=== PATIENT | female | born 1980 | race Caucasian/White ===

== ENCOUNTER 2017-12-22 15:01 | Emergency (ER) | payer MEDICAID ==
[~2017-12-22] VITALS: Ht 157.5 cm; Wt 81.7 kg
[~2017-12-22 15:01] MED LIST: ACETAMINOPHEN-1 EAC1 PO; AMITRIPTYLINE H10 M1 PO; AMOXICILLIN 50500 M1 PO; ANAPROX; ANAPROX DS550 MG; CARAFATE 1 GM TA1 GM PO; CIPRO250 M1 PO; CLEOCIN HCL300 MG PO; CLONAZEPAM 1 MG1 M1 PO; COLACE100 MG PO; CYMBALTA; CYMBALTA30 MG PO; CYMBALTA60 MG PO; DESYREL; DESYREL100 MG PO; DESYREL50 MG; DICLOFENAC SODI75 MG PO; DIPHENHIST50 MG PO; DOXYCYCLINE 10100 MG PO; FLAGYL500 M1 PO; FLAGYL500 MG PO; FLEXERIL PO; HYDROCODONE-AP1 EAC6 PO; HYDROCODONE-APA1 TA1 PO; IBUPROFEN 800800 M1 PO; IBUPROFEN 800800 MG PO; LEVAQUIN 500 M500 M2 PO; MACROBID 100 M100 M1 PO; MACROBID 100 M100 M2 PO; MEDROLDOSEPACK PO; MULTIVITAMIN PO; NAPROSYN500 MG PO; NAUSEA MEDICATION; NEURONTIN600 MG PO; NORCO 10-325 T1 EACH PO; NORCO 5-325 TA1 EACH PO; ONDANSETRON HCL4 M3 PO; ORTHO-NOVUM1 EAC2 PO; OXYCODONE HCL15 MG PO; PEPCID20 MG PO; PERCOCET 10-321 EACH PO; PERCOCET 7.5-31 EACH PO; PHENERGAN 25 MG25 M1 PO; PREDNISONE 20 M20 MG PO; PRENATAL; PREVACID 24HR15 MG PO; PRILOSEC20 MG PO; PROTONIX 20 MG20 M1 PO; PYRIDIUM100 M1 PO; PYRIDIUM200 MG PO; RESTORIL15 MG PO; RISPERDAL; ROBAXIN 750 MG750 M1 PO; SLEEP AID; TOPAMAX PO; TOPAMAX25 M1 PO; TOPAMAX50 MG PO; TORADOL 10 MG T10 MG PO; TRAMADOL 50 MG50 MG PO; VICODIN; VICODIN PO; VICOPROFEN 2001 EACH PO; ZANAFLEX4 M1 PO; ZANAFLEX4 MG PO; ZANTAC; ZOFRAN ODT4 MG PO
[2017-12-22] MEDS ORDERED: LAMICTAL100 MG PO (15:21)
[2017-12-22] MEDS ORDERED: SERTRALINE HCL50 MG PO (15:22)
[2017-12-22 15:44] LABS: URINE BILIRUBIN NEGATIVE (Negative); URINE BLOOD NEGATIVE (Negative); URINE CLARITY CLOUDY; URINE COLOR YELLOW; URINE GLUCOSE-RANDOM NEGATIVE (Negative); URINE KETONES NEGATIVE (Negative); URINE LEUKOCYTES-REFLEX NEGATIVE (Negative); URINE NITRITE-REFLEX NEGATIVE (Negative); URINE PROTEIN NEGATIVE (Negative); URINE UROBILINOGEN 0.2 E.U./dl (0.2-1.0)
[2017-12-22 15:49] LABS: AMORPHOUS PHOSPHATES Many /LPF (None Seen); BACTERIA-REFLEX 1-9 Few /HPF (None Seen); CASTS None Seen /LPF (None Seen); SQUAMOUS 4-10 Moderate /LPF (0-3); URINE RBC 0-2 Rare /HPF (0-2); URINE WBC-REFLEX None Seen /HPF (0-5)
[2017-12-22] MEDS ORDERED: MEDROLDOSEPACK PO (15:57)
[2017-12-22 16:05] VITALS: BP 124/74
== END 2017-12-22 16:05 | disposition home or self-care (01) ==
LOC: M.ERS 15:01
PROVIDERS: Personal Emergency Response Attendant
DX: M54.42 Lumbago with sciatica, left side (principal); M79.7 Fibromyalgia; F32.9 Major depressive disorder, single episode, unspecified; F41.9 Anxiety disorder, unspecified; G43.909 Migraine, unspecified, not intractable, without status migrainosus; F17.210 Nicotine dependence, cigarettes, uncomplicated; Z88.1 Allergy status to other antibiotic agents; Z88.8 Allergy status to other drugs, medicaments and biological substances

== ENCOUNTER 2018-06-18 14:37 | Inpatient (IN) | payer MEDICAID ==
[~2018-06-18] VITALS: Ht 167.6 cm; Wt 83.9 kg
[~2018-06-18 14:37] MED LIST changes: +LAMICTAL100 MG PO; +SERTRALINE HCL50 MG PO
[2018-06-18 14:48] VITALS: BP 116/75
[2018-06-18 15:13] LABS: ABSOLUTE EOSINOPHILS 0.1 thou/uL (0.0-0.7); ABSOLUTE LYMPHOCYTES 2.5 thou/uL (0.8-5.3); ABSOLUTE MONOCYTES 0.3 thou/uL (0.0-1.2); ABSOLUTE NEUTROPHILS 5.6 thou/uL (1.6-8.1); BASOPHILS 0.5 %; EOSINOPHILS 0.8 %; HEMATOCRIT 42.8 % (37.0-47.0); HEMOGLOBIN 14.4 gm/dL (12.0-15.0); LYMPHOCYTES 29.1 %; MCH 30.6 pg (26.0-34.0); MCHC 33.7 g/dL (28.0-37.0); MCV 90.6 fL (80.0-100.0); MPV 8.2 fl. (7.2-11.1); NUCLEATED RBCS 0 /100WBC; PLATELET COUNT* 229 thou/uL (150-400); POLYS 65.6 %; RBC 4.72 mil/uL (4.20-5.00); RDW-CV 13.6 % (10.5-14.5); WBC 8.6 thou/uL (4.0-11.0)
[2018-06-18 15:18] LABS: POC CA IONIZED 4.4 mg/dL (4.5-5.3); POC CREATININE 0.7 mg/dL (0.6-1.3); POC POTASSIUM 3.7 mmol/L (3.5-4.9)
[2018-06-18 15:23] LABS: CALCIUM 8.2 mg/dL (8.5-10.1); CREATININE 0.8 mg/dL (0.6-1.3); POTASSIUM 3.6 mmol/L (3.5-5.1)
[2018-06-18 15:27] LABS: ALBUMIN 3.5 g/dL (3.4-5.0); TOTAL BILIRUBIN 0.3 mg/dL (<0.1-1.0); TOTAL PROTEIN 6.8 g/dL (6.4-8.2)
[2018-06-18 15:28] LABS: APTT 27.8 Seconds (25.0-31.3); PROTIME 9.9 Seconds (9.20-11.50)
[2018-06-18 16:09] LABS: URINE BILIRUBIN NEGATIVE (Negative); URINE BLOOD NEGATIVE (Negative); URINE CLARITY CLEAR; URINE COLOR YELLOW; URINE GLUCOSE-RANDOM NEGATIVE (Negative); URINE KETONES NEGATIVE (Negative); URINE LEUKOCYTES NEGATIVE (Negative); URINE NITRITE NEGATIVE (Negative); URINE PROTEIN NEGATIVE (Negative); URINE SPECIFIC GRAVITY <= 1.005 (1.005-1.030); URINE UROBILINOGEN 0.2 E.U./dl (0.2-1.0)
[2018-06-18 16:31] LABS: AMP/METHAMP Negative (Negative); BARBITURATES Negative (Negative); BENZODIAZEPINES Negative (Negative); COCAINE Negative (Negative); METHADONE Negative (Negative); OPIATES Negative (Negative); PCP Negative (Negative); THC POSITIVE (Negative)
[2018-06-18] MEDS ORDERED: ZANAFLEX4 MG PO (16:45)
[2018-06-18] MEDS ORDERED: VENTOLIN HFA INH8 GM INH (16:46)
[2018-06-18] MEDS ORDERED: ONDANSETRON HCL4 M2 PO (16:48)
--- NOTE | 2018-06-18 16:48 | NUR ---
MOTHER AT BEDSIDE. ABLE TO VERBALIZE NEEDS. C/O HEADACHE, DR. BOWIE IS AWARE.
[2018-06-18 18:00] VITALS: BP 103/68
[2018-06-18 18:11] VITALS: BP 92/52
--- NOTE | 2018-06-18 18:11 | NUR ---
REVIEWED DOCUMENTATION OF YMLES GUTIERRES STUDENT & AGREE W/ SAME.
--- NOTE | 2018-06-18 18:51 | NUR ---
PATIENT CAME TO THE FLOOR FROM THE ER VIA CART IN STABLE CONDITION. SOME COMPLAINTS OF A HEADACHE AND SOME TINGLING IN THE RIGHT HAND. ADMISSION ASSESSMENT AND ROOM EDUCATION DONE, QUESTIONS ANSWERED FOR PATIENT AND PARENTS. CALL LIGHT IS IN REACH, WILL CONTINUT TO MONITOR.
[2018-06-18 20:40] VITALS: BP 106/57
[2018-06-19 04:00] VITALS: BP 97/58
--- NOTE | 2018-06-19 06:59 | NUR ---
Pt states she did not sleep very well overnight due to unfamiliar surroundings and uncomfortable bed. Pt c/o generalized back pain last pm. Received orders to resume home meds/doses of gabapentin and zanaflex. Also brought in heating pad. This am pt reports pain level is better. Awaiting MRI today. VSS. Will continue to monitor.
[2018-06-19 08:00] VITALS: BP 90/57
--- NOTE | 2018-06-19 08:00 | NUR ---
ASSUMED CARE OF PT AT 0730. PT RESTING IN BED WAITING FOR BREAKFAST. A&0X4, DENIES ANY PAIN OR SHORTNESS OF BREATH AT THIS TIME. NIH COMPLETED- PT SCORING ZERO. 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 ON RA SAT UPPER 90'S. NEURO HERE TO SEE PT. ORDERS RECEIVED FOR MRI LUMBAR SPINE, THORACIC SPINE AND EEG. REFER TO RESULTS. POSSIBLE DISCHARGE HOME THIS AFTERNOON AND FOLLOW UP NEURO OUTPT. PT UP SBA TO BATHROOM. DENIES ANY NUMBNESS OR TINGLING. TOLERATING THIN LIQUIDS WITH NO DIFFICULTY. AM ASSESSMENT CHARTED. MEDICATIONS PER JAN. PT REPOSITIONS SELF. HOURLY ROUNDING OBSERVED. BED IN LOW POSITION. CALL LIGHT WITHIN REACH. WILL CONTINUE PLAN OF CARE.
--- NOTE | 2018-06-19 10:47 | EKG ---
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: Claude TELLO : 1980 Requested By: Diego Godoy Order Number: [id number] MD: Brian Kinney Measurements Intervals [place] Rate: 59 P: 47 MT: 149 QRS: -69 QRSD: 97 T: 52 QT: 429 QTc: 425 Interpretive Statements Sinus rhythm Left anterior fascicular block Borderline low voltage, extremity leads Abnormal R-wave progression, late transition Compared to ECG 09/23/2016 21:22:25 No significant changes Electronically Signed On 06-19-2018 10:46:57 CDT by Brian Kinney [email or web address] <ELECTRONICALLY SIGNED> By: Brian Kinney MD, FAC 06/19/18 1046 1514 1514 Brian Kinney MD, [facility] /EPI
[2018-06-19 12:05] VITALS: BP 94/54
[2018-06-19 13:54] LABS: CHOLESTEROL 157 mg/dL (<200); HDL CHOLESTEROL 39 mg/dL (>40); LDL CHOLESTEROL 84 mg/dL (<100); SERUM ASSESSMENT Clear; TRIGLYCERIDE 172 mg/dL (<150); VLDL 34 mg/dL (<40)
--- NOTE | 2018-06-19 15:28 | NUR ---
SW met with pt to complete initial assessment, introduce self, and SW role. Pt alert and oriented, tearful and said she wants to go home. Pt lives at home with parent and boyfriend support. Pt independent with mobility and ADLs. Pt does not anticipate any dc needs at this time.
[2018-06-19 16:23] VITALS: BP 83/53
[2018-06-19 17:29] VITALS: BP 110/81
[2018-06-19 18:45] VITALS: BP 110/81
--- NOTE | 2018-06-19 18:58 | NUR ---
DISCHARGE ORDERS RECEIVED. DISCHARGE INSTRUCTIONS AND FOLLOW UP APPTS GIVEN TO PT. PT COMMUNICATES UNDERSTANDING OF DISCHARGE TEACHING. IV AND CHIEF ENGINEER WATERWORKS REMOVED. PT DISCHARGED WITH ALL BELONGINGS AND PAPERWORK VIA WHEELCHAIR WITH NURSING STAFF TO FAMILY OWN PERSONAL VEHICLE.
[2018-06-22 14:12] LABS: ANA INTERPRETATION Negative (Negative)
--- NOTE | 2018-06-26 12:17 | EEG ---
[address] [address] EEG STUDY REPORT Name: WILLARD SU Fransisco Room: [address] IN M.R.#: [id number] Admission: 06/18/18 Attend Phys: Shweta Leigh Discharge: 06/19/18 Date of : 82 Report #: [id number] THIS REPORT FOR: //name// CC: Ahmashweta Rodriguez DATE OF SERVICE: 06/19/2018 This patient is being evaluated for pseudoseizure and some unusual finding of going the blood to the brain. EEG was done by placing the electrodes by standard 10-20 system of electrode placement. Both referential and sequential montages were used for recording. Background activity in this patient's EEG is about 9-10 Hz and 30 microvolt. There is a symmetrical activity. Photic stimulation was unremarkable. This patient went to sleep that is associated with bilaterally symmetrical sleep spindle and vertex sharp waves. Photic stimulation is unremarkable. Throughout the records, no active epileptiform activity was noticed. IMPRESSION: This patient's EEG is within normal limits. Thank you very much for this referral. <ELECTRONICALLY SIGNED> By: Jaden Field MD 06/26/18 1217 1957 15Jaden Field MD /nt
--- NOTE | 2018-06-26 12:17 | CON ---
[address] [address] CONSULTATION Name: WILLARD SU Room: [address] IN M.R.#: [id number] Admission: 06/18/18 Attend Phys: Shweta Leigh Discharge: 06/19/18 Date of : 82 Report #: [id number] THIS REPORT FOR: //name// CC: Shannon Rodriguez DATE OF SERVICE: 06/19/2018 HISTORY OF PRESENT ILLNESS: This is a 37-year-old female patient who was evaluated by me for somewhat unusual symptoms. She said on Friday, she had some problem with the right lower extremity. It was some numbness in the right leg. She also had some pain in the lower portion of the back. Then, subsequently she had some pretty unusual symptoms where she had some things rushing into her brain and unusual feeling of disorientation. She has history of pseudoseizure. She indicates she has not had one for long time. She used to see a neurologist, but she has not seen a neurologist recently. She estimates that her last pseudoseizure was more than a year ago. REVIEW OF SYSTEMS: Also positive for depression. She had a history of a pseudoseizure. She had a hysterectomy in the past. She had atypical chest pain in the past. She has back pain in the past. She is on a high dose of gabapentin. She also tells me that she takes Lamictal. She does not know the dose. She said she takes Lamictal for bipolar disorder, but they told her it will also help her seizures. She has not had one for some time. I carried out, the 14-point review of system. She does have some history of migraine, pelvic inflammatory disease, mastitis, back pain, sciatica. That was the relevant 14-point review of system. PAST MEDICAL HISTORY: Positive for pseudoseizure. It is also positive for back pain. FAMILY HISTORY: Negative for early age stroke. SOCIAL HISTORY: She smokes. She said she does not use alcohol. PHYSICAL EXAMINATION: Indicate that she is alert and responsive. She can follow simple commands. Her speech, concentration, fund of knowledge and memory appear unremarkable. Cranial nerve examination 2-12 is unremarkable. Strength, sensation, reflexes and tones are symmetrical. There is no meningeal sign. There is no papilledema. There is no carotid bruit. She is moderately built individual who does not have any dysmorphic features of eyes, ears and face. Her vision and hearing looks adequate. Pulses are palpable. Cardiac examination is unremarkable. No respiratory difficulty or rhonchi was noticed on either side. Blood pressure is 94/54, respirations 17, pulse is 60, and temperature is 98.5. [place] [address] CONSULTATION Name: WILLARD SU Room: [address] M.R.#: [id number] Admission: 06/18/18 Attend Phys: Shweta Leigh Discharge: 06/19/18 Date of : 82 Report #: [id number] LABORATORY DATA: Indicate a white count of 8.6 and sodium of 140. She did have an MRI of the brain, thoracic spine and CTA that look mostly unremarkable. MRI does show some mild changes, but that does not look like MS. IMPRESSION: Somewhat unusual symptoms. With prior history of such significant psychiatric problem, I am not sure whether these symptoms are organic or not. I will do the MRI of the lumbar spine also. If that is okay as far as neurological workup we can do. We probably just need to watch her and she need to live healthy lifestyle and must stop smoking, might check her cholesterol and put her on aspirin daily and see if there is any need for statin. For some reason, she had a B12 done in 2009 and that was low and we will recheck it. All of it was discussed with the patient. The patient was also discussed with Dr. Rodriguez. <ELECTRONICALLY SIGNED> By: Jaden Field MD 06/26/18 1217 1254 1844Pstephie Field MD /mindy
== END 2018-06-19 19:05 | disposition home or self-care (01) | DRG 92 ==
LOC: M.ERS 14:37 → M.2W 16:41 → M.TBA-ER 16:41 → M.2W 18:00
PROVIDERS: Emergency Medicine; Psychiatry & Neurology Neuromuscular Medicine; ADMIT Internal Medicine
DX: R20.2 Paresthesia of skin (principal); G40.802 Other epilepsy, not intractable, without status epilepticus; M79.7 Fibromyalgia; F32.9 Major depressive disorder, single episode, unspecified; F41.9 Anxiety disorder, unspecified; G43.909 Migraine, unspecified, not intractable, without status migrainosus; F17.210 Nicotine dependence, cigarettes, uncomplicated; Z90.89 Acquired absence of other organs; Z90.710 Acquired absence of both cervix and uterus; Z79.899 Other long term (current) drug therapy; Z88.8 Allergy status to other drugs, medicaments and biological substances

== ENCOUNTER 2018-08-27 15:00 | Emergency (ER) | payer MEDICAID ==
[~2018-08-27] VITALS: Ht 165.1 cm; Wt 81.7 kg
[~2018-08-27 15:00] MED LIST changes: +ONDANSETRON HCL4 M2 PO; +VENTOLIN HFA INH8 GM INH
[2018-08-27 15:55] LABS: ABSOLUTE EOSINOPHILS 0.1 thou/uL (0.0-0.7); ABSOLUTE LYMPHOCYTES 2.3 thou/uL (0.8-5.3); ABSOLUTE MONOCYTES 0.3 thou/uL (0.0-1.2); BASOPHILS 0.4 %; EOSINOPHILS 1.1 %; HEMATOCRIT 39.6 % (37.0-47.0); HEMOGLOBIN 13.4 gm/dL (12.0-15.0); LYMPHOCYTES 34.4 %; MCH 31.2 pg (26.0-34.0); MCHC 33.9 g/dL (28.0-37.0); MONOCYTES 4.9 %; MPV 8.4 fl. (7.2-11.1); NUCLEATED RBCS 0 /100WBC; PLATELET COUNT* 207 thou/uL (150-400); POLYS 59.2 %; RBC 4.31 mil/uL (4.20-5.00); RDW-CV 12.9 % (10.5-14.5); WBC 6.7 thou/uL (4.0-11.0)
[2018-08-27 16:09] LABS: ANION GAP 5 mmol/L (7-16); BUN 14 mg/dL (7-18); CALCIUM 8.2 mg/dL (8.5-10.1); CHLORIDE 105 mmol/L (98-107); CO2 27 mmol/L (21-32); CREATININE 0.8 mg/dL (0.6-1.3); GLUCOSE 81 mg/dL (70-99); POTASSIUM 3.8 mmol/L (3.5-5.1); SODIUM 137 mmol/L (136-145)
[2018-08-27 16:16] LABS: ALBUMIN 3.5 g/dL (3.4-5.0); ALKALINE PHOSPHATASE 59 U/L (46-116); LIPASE 98 U/L (73-393); SGOT 15 U/L (15-37); SGPT 19 U/L (30-65); TOTAL BILIRUBIN 0.4 mg/dL (<0.1-1.0); TOTAL PROTEIN 6.8 g/dL (6.4-8.2); TROPONIN-I LEVEL <0.06 ng/mL (<0.06)
[2018-08-27] MEDS ORDERED: ROBAXIN 750 MG750 M1 PO (16:55)
[2018-08-27] MEDS ORDERED: MEDROLDOSEPACK PO (16:55)
[2018-08-27] MEDS ORDERED: NABUMETONE 750750 M1 PO (16:55)
[2018-08-27 17:15] VITALS: BP 104/77
--- NOTE | 2018-08-28 10:54 | EKG ---
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: ADOLFO : 1980 Requested By: Kathie Givens Order Number: [id number] MD: Gen Quezada Measurements Intervals [place] Rate: 59 P: 54 OR: 147 QRS: -64 QRSD: 92 T: 47 QT: 406 QTc: 403 Interpretive Statements Sinus rhythm Left anterior fascicular block Low voltage, extremity leads Abnormal R-wave progression, late transition Compared to ECG 06/18/2018 15:14:34 No significant changes Electronically Signed On 08-28-2018 10:54:25 CDT by Gen Quezada [email or web address] <ELECTRONICALLY SIGNED> By: Gne Quezada MD, [facility] 08/28/18 1054 1540 1540 Gen Quezada MD, [facility] /EPI
== END 2018-08-27 17:17 | disposition home or self-care (01) ==
LOC: M.ERS 15:00
PROVIDERS: Nurse Practitioner Family
DX: M54.16 Radiculopathy, lumbar region (principal); M54.6 Pain in thoracic spine; M79.7 Fibromyalgia; F32.9 Major depressive disorder, single episode, unspecified; F41.9 Anxiety disorder, unspecified; F17.210 Nicotine dependence, cigarettes, uncomplicated; Z88.1 Allergy status to other antibiotic agents; Z88.8 Allergy status to other drugs, medicaments and biological substances; Z90.711 Acquired absence of uterus with remaining cervical stump

== ENCOUNTER 2018-09-23 12:28 | Emergency (ER) | payer MEDICAID ==
[~2018-09-23] VITALS: Ht 160 cm; Wt 83.0 kg
[~2018-09-23 12:28] MED LIST changes: +NABUMETONE 750750 M1 PO
[2018-09-23] MEDS ORDERED: MEDROLDOSEPACK PO (14:34)
[2018-09-23 15:02] VITALS: BP 105/55
== END 2018-09-23 15:04 | disposition home or self-care (01) ==
LOC: M.ERS 12:28
DX: S39.012A Strain of muscle, fascia and tendon of lower back, initial encounter (principal); M79.7 Fibromyalgia; F32.9 Major depressive disorder, single episode, unspecified; F41.9 Anxiety disorder, unspecified; G43.909 Migraine, unspecified, not intractable, without status migrainosus; Z90.49 Acquired absence of other specified parts of digestive tract; Z90.710 Acquired absence of both cervix and uterus; F17.210 Nicotine dependence, cigarettes, uncomplicated; Z88.1 Allergy status to other antibiotic agents; Z88.8 Allergy status to other drugs, medicaments and biological substances; X58.XXXA Exposure to other specified factors, initial encounter; Y93.89 Activity, other specified; Y92.89 Other specified places as the place of occurrence of the external cause; Y99.8 Other external cause status

== ENCOUNTER 2019-02-09 13:04 | Emergency (ER) | payer MEDICAID ==
[~2019-02-09] VITALS: Ht 160 cm; Wt 79.4 kg
[2019-02-09 13:33] LABS: URINE BILIRUBIN NEGATIVE (Negative); URINE BLOOD NEGATIVE (Negative); URINE CLARITY CLEAR; URINE COLOR YELLOW; URINE GLUCOSE-RANDOM NEGATIVE (Negative); URINE KETONES NEGATIVE (Negative); URINE LEUKOCYTES-REFLEX NEGATIVE (Negative); URINE NITRITE-REFLEX NEGATIVE (Negative); URINE PROTEIN NEGATIVE (Negative); URINE SPECIFIC GRAVITY 1.015 (1.005-1.030); URINE UROBILINOGEN 0.2 E.U./dl (0.2-1.0)
[2019-02-09] MEDS ORDERED: OXYCODONE HCL10 MG PO (13:37)
[2019-02-09] MEDS ORDERED: ZOLOFT50 MG PO (13:38)
[2019-02-09] MEDS ORDERED: LAMOTRIGINE150 MG PO (13:39)
[2019-02-09 13:49] LABS: ABSOLUTE BASOPHILS 0.1 thou/uL (0.0-0.2); ABSOLUTE LYMPHOCYTES 2.1 thou/uL (0.8-5.3); ABSOLUTE MONOCYTES 0.3 thou/uL (0.0-1.2); ABSOLUTE NEUTROPHILS 6.2 thou/uL (1.6-8.1); BASOPHILS 0.7 %; EOSINOPHILS 0.5 %; HEMATOCRIT 41.7 % (37.0-47.0); HEMOGLOBIN 14.4 gm/dL (12.0-15.0); LYMPHOCYTES 24.4 %; MCH 31.5 pg (26.0-34.0); MCHC 34.6 g/dL (28.0-37.0); MCV 90.8 fL (80.0-100.0); MONOCYTES 3.8 %; NUCLEATED RBCS 0 /100WBC; PLATELET COUNT* 208 thou/uL (150-400); POLYS 70.6 %; RBC 4.59 mil/uL (4.20-5.00); RDW-CV 12.8 % (10.5-14.5); WBC 8.8 thou/uL (4.0-11.0)
[2019-02-09 14:07] LABS: ALBUMIN 3.5 g/dL (3.4-5.0); CALCIUM 8.2 mg/dL (8.5-10.1); CREATININE 0.7 mg/dL (0.6-1.3); POTASSIUM 3.6 mmol/L (3.5-5.1); TOTAL BILIRUBIN 0.8 mg/dL (<0.1-1.0); TOTAL PROTEIN 6.9 g/dL (6.4-8.2)
[2019-02-09] MEDS ORDERED: BENTYL 10 MG CA10 M1 PO (15:08)
[2019-02-09] MEDS ORDERED: ZOFRAN4 MG PO (15:08)
[2019-02-09 15:31] VITALS: BP 111/68
== END 2019-02-09 15:32 | disposition home or self-care (01) ==
LOC: M.ERS 13:04
PROVIDERS: Nurse Practitioner Family
DX: R10.10 Upper abdominal pain, unspecified (principal); R11.2 Nausea with vomiting, unspecified; F32.9 Major depressive disorder, single episode, unspecified; F41.9 Anxiety disorder, unspecified; G43.909 Migraine, unspecified, not intractable, without status migrainosus; M79.7 Fibromyalgia; Z90.49 Acquired absence of other specified parts of digestive tract; Z90.710 Acquired absence of both cervix and uterus; F17.210 Nicotine dependence, cigarettes, uncomplicated; Z88.1 Allergy status to other antibiotic agents; Z88.8 Allergy status to other drugs, medicaments and biological substances

== ENCOUNTER 2019-04-08 14:53 | Emergency (ER) | payer MEDICAID ==
[~2019-04-08] VITALS: Ht 160 cm; Wt 74.8 kg
[~2019-04-08 14:53] MED LIST changes: +BENTYL 10 MG CA10 M1 PO; +LAMOTRIGINE150 MG PO; +OXYCODONE HCL10 MG PO; +ZOFRAN4 MG PO; +ZOLOFT50 MG PO
[2019-04-08 15:40] LABS: ABSOLUTE EOSINOPHILS 0.1 thou/uL (0.0-0.7); ABSOLUTE MONOCYTES 0.3 thou/uL (0.0-1.2); ABSOLUTE NEUTROPHILS 4.2 thou/uL (1.6-8.1); BASOPHILS 0.2 %; EOSINOPHILS 0.8 %; HEMATOCRIT 41.1 % (37.0-47.0); LYMPHOCYTES 31.1 %; MCH 31.2 pg (26.0-34.0); MCV 91.7 fL (80.0-100.0); MONOCYTES 4.2 %; MPV 8.4 fl. (7.2-11.1); NUCLEATED RBCS 0 /100WBC; PLATELET COUNT* 196 thou/uL (150-400); POLYS 63.7 %; RBC 4.48 mil/uL (4.20-5.00); RDW-CV 12.8 % (10.5-14.5); WBC 6.6 thou/uL (4.0-11.0)
[2019-04-08 15:45] LABS: URINE BILIRUBIN NEGATIVE (Negative); URINE BLOOD NEGATIVE (Negative); URINE CLARITY CLEAR; URINE COLOR YELLOW; URINE GLUCOSE-RANDOM NEGATIVE (Negative); URINE KETONES NEGATIVE (Negative); URINE LEUKOCYTES-REFLEX NEGATIVE (Negative); URINE NITRITE-REFLEX NEGATIVE (Negative); URINE PROTEIN NEGATIVE (Negative); URINE SPECIFIC GRAVITY 1.025 (1.005-1.030); URINE UROBILINOGEN 0.2 E.U./dl (0.2-1.0)
[2019-04-08 15:49] LABS: CALCIUM 8.4 mg/dL (8.5-10.1); CREATININE 0.8 mg/dL (0.6-1.3); POTASSIUM 3.6 mmol/L (3.5-5.1)
[2019-04-08 15:53] LABS: ALBUMIN 3.7 g/dL (3.4-5.0); TOTAL BILIRUBIN 0.2 mg/dL (<0.1-1.0); TOTAL PROTEIN 7.1 g/dL (6.4-8.2)
[2019-04-08 16:23] VITALS: BP 106/68
== END 2019-04-08 16:24 | disposition left against medical advice (07) ==
LOC: M.ERS 14:53
PROVIDERS: Nurse Practitioner Family
DX: G89.29 Other chronic pain (principal); M54.5 Low back pain; R11.2 Nausea with vomiting, unspecified; R10.30 Lower abdominal pain, unspecified; M79.7 Fibromyalgia; F32.9 Major depressive disorder, single episode, unspecified; F41.9 Anxiety disorder, unspecified; G43.909 Migraine, unspecified, not intractable, without status migrainosus; Z90.711 Acquired absence of uterus with remaining cervical stump; Z98.890 Other specified postprocedural states

== ENCOUNTER 2019-05-25 11:17 | Emergency (ER) | payer MEDICAID ==
[~2019-05-25] VITALS: Ht 160 cm; Wt 78.0 kg
[2019-05-25] MEDS ORDERED: MAGIC MOUTHWASH SWISH&SPIT (11:57)
[2019-05-25] MEDS ORDERED: NABUMETONE 750750 M1 PO (11:57)
[2019-05-25] MEDS ORDERED: AUGMENTIN 875-1 EACH PO (11:57)
[2019-05-25 12:14] VITALS: BP 128/82
== END 2019-05-25 12:15 | disposition home or self-care (01) ==
LOC: M.ERS 11:17
DX: J01.00 Acute maxillary sinusitis, unspecified (principal); K08.89 Other specified disorders of teeth and supporting structures; F17.210 Nicotine dependence, cigarettes, uncomplicated; M79.7 Fibromyalgia; F32.9 Major depressive disorder, single episode, unspecified; F41.9 Anxiety disorder, unspecified; M19.90 Unspecified osteoarthritis, unspecified site; G43.909 Migraine, unspecified, not intractable, without status migrainosus; Z90.711 Acquired absence of uterus with remaining cervical stump; Z88.1 Allergy status to other antibiotic agents; Z88.8 Allergy status to other drugs, medicaments and biological substances; Z88.6 Allergy status to analgesic agent; Z90.89 Acquired absence of other organs; Z90.49 Acquired absence of other specified parts of digestive tract

== ENCOUNTER 2019-10-22 10:53 | Emergency (ER) | payer MEDICAID ==
[~2019-10-22] VITALS: Ht 160 cm; Wt 79.4 kg
[~2019-10-22 10:53] MED LIST changes: +AUGMENTIN 875-1 EACH PO; +MAGIC MOUTHWASH SWISH&SPIT
[2019-10-22] MEDS ORDERED: LAMICTAL5 MG PO (11:09)
[2019-10-22] MEDS ORDERED: CHANTIX0.5 MG PO (11:10)
[2019-10-22 11:26] LABS: URINE BILIRUBIN NEGATIVE (Negative); URINE BLOOD NEGATIVE (Negative); URINE COLOR YELLOW; URINE GLUCOSE-RANDOM NEGATIVE (Negative); URINE KETONES NEGATIVE (Negative); URINE LEUKOCYTES-REFLEX NEGATIVE (Negative); URINE NITRITE-REFLEX NEGATIVE (Negative); URINE PROTEIN NEGATIVE (Negative); URINE SPECIFIC GRAVITY 1.015 (1.005-1.030); URINE UROBILINOGEN 0.2 E.U./dl (0.2-1.0)
[2019-10-22 11:27] LABS: URINE CLARITY CLOUDY
[2019-10-22 11:29] LABS: BACTERIA-REFLEX None Seen /HPF (None Seen); CASTS None Seen /LPF (None Seen); MUCUS 0-3 Light strn/LPF (None Seen); SQUAMOUS 0-3 Few /LPF (0-3); URINE RBC None Seen /HPF (0-2); URINE WBC-REFLEX None Seen /HPF (0-5)
[2019-10-22 11:30] LABS: AMORPHOUS URATES Moderate /LPF (None Seen)
[2019-10-22 11:31] LABS: ABSOLUTE EOSINOPHILS 0.1 thou/uL (0.0-0.7); ABSOLUTE LYMPHOCYTES 1.8 thou/uL (0.8-5.3); ABSOLUTE MONOCYTES 0.3 thou/uL (0.0-1.2); ABSOLUTE NEUTROPHILS 3.5 thou/uL (1.6-8.1); BASOPHILS 0.5 %; EOSINOPHILS 1.1 %; HEMATOCRIT 42.7 % (37.0-47.0); HEMOGLOBIN 14.9 gm/dL (12.0-15.0); LYMPHOCYTES 31.3 %; MCHC 34.8 g/dL (28.0-37.0); MCV 91.8 fL (80.0-100.0); MONOCYTES 4.9 %; MPV 8.3 fl. (7.2-11.1); NUCLEATED RBCS 0 /100WBC; PLATELET COUNT* 226 thou/uL (150-400); POLYS 62.2 %; RBC 4.64 mil/uL (4.20-5.00); RDW-CV 12.9 % (10.5-14.5); WBC 5.6 thou/uL (4.0-11.0)
[2019-10-22 11:37] LABS: CREATININE 0.8 mg/dL (0.6-1.3); POTASSIUM 3.9 mmol/L (3.5-5.1)
[2019-10-22 11:41] LABS: ALBUMIN 4.1 g/dL (3.4-5.0); TOTAL BILIRUBIN 0.4 mg/dL (<0.1-1.0); TOTAL PROTEIN 7.8 g/dL (6.4-8.2)
[2019-10-22] MEDS ORDERED: NORCO 5-325 TA1 EAC1 PO (13:19)
[2019-10-22] MEDS ORDERED: ZOFRAN ODT4 MG DISSOLVE (13:19)
[2019-10-22 13:46] VITALS: BP 107/63
--- NOTE | 2019-10-22 15:41 | EKG ---
[place] [address] ELECTROCARDIOGRAM REPORT Name: SHARLENEWILLARD R Room: [facility]#: [id number] Admission: 10/22/19 Attend Phys: Discharge: 10/22/19 Date of : 82 Report #: [id number] THIS REPORT FOR: //name// [facility] ED Test Date: 2019-10-22 Test Time: :: Pat Name: WILLARD SU Department: Room: Gender: F Clerical Administrative Assistant: LUCRETIA : 1980 Requested By: Eduardo Bush Order Number: [id number] MD: Gen Quezada Measurements Intervals [place] Rate: 60 P: 57 [place]: 146 QRS: -89 QRSD: 98 T: 52 QT: 415 QTc: 415 Interpretive Statements Sinus rhythm Left anterior fascicular block Borderline low voltage, extremity leads Abnormal R-wave progression, late transition Baseline wander in lead(s) I,III,aVL Compared to ECG 08/27/2018 15:40:36 No significant changes Electronically Signed On 10-22-2019 15:41:35 SQL SSRS SSIS DEVELOPER by Gen Quezada [email or web address] <ELECTRONICALLY SIGNED> By: Gen Quezada MD, FAC 10/22/19 1541 1119 1119 Gen Quezada MD, [facility] /EPI
== END 2019-10-22 13:49 | disposition home or self-care (01) ==
LOC: M.ERS 10:53
PROVIDERS: Emergency Medicine Emergency Medical Services
DX: R10.31 Right lower quadrant pain (principal); R10.32 Left lower quadrant pain; M79.7 Fibromyalgia; F17.210 Nicotine dependence, cigarettes, uncomplicated; Z88.1 Allergy status to other antibiotic agents; Z88.8 Allergy status to other drugs, medicaments and biological substances; Z98.890 Other specified postprocedural states; Z90.711 Acquired absence of uterus with remaining cervical stump

== ENCOUNTER 2020-02-01 16:41 | Emergency (ER) | payer MEDICAID ==
[~2020-02-01] VITALS: Ht 160 cm; Wt 78.5 kg
[~2020-02-01 16:41] MED LIST changes: +CHANTIX0.5 MG PO; +LAMICTAL5 MG PO; +NORCO 5-325 TA1 EAC1 PO; +ZOFRAN ODT4 MG DISSOLVE
[2020-02-01 16:51] VITALS: BP 117/76
[2020-02-01] MEDS ORDERED: MEDROLDOSEPACK PO (17:11)
== END 2020-02-01 17:26 | disposition home or self-care (01) ==
LOC: M.ERS 16:41
DX: G89.29 Other chronic pain (principal); M54.5 Low back pain; G43.909 Migraine, unspecified, not intractable, without status migrainosus; M79.7 Fibromyalgia; F17.210 Nicotine dependence, cigarettes, uncomplicated; Z88.1 Allergy status to other antibiotic agents; Z88.8 Allergy status to other drugs, medicaments and biological substances; Z90.711 Acquired absence of uterus with remaining cervical stump; Z90.89 Acquired absence of other organs

== ENCOUNTER 2020-02-05 20:49 | Emergency (ER) | payer MEDICAID ==
[~2020-02-05] VITALS: Ht 160 cm; Wt 81.7 kg
[2020-02-05] MEDS ORDERED: PHENTERMINE (20:54)
[2020-02-05 21:32] LABS: ABSOLUTE BASOPHILS 0.1 thou/uL (0.0-0.2); ABSOLUTE EOSINOPHILS 0.1 thou/uL (0.0-0.7); ABSOLUTE LYMPHOCYTES 2.5 thou/uL (0.8-5.3); ABSOLUTE MONOCYTES 0.7 thou/uL (0.0-1.2); ABSOLUTE NEUTROPHILS 8.2 thou/uL (1.6-8.1); BASOPHILS 0.7 %; EOSINOPHILS 0.6 %; HEMATOCRIT 37.8 % (37.0-47.0); HEMOGLOBIN 13.3 gm/dL (12.0-15.0); LYMPHOCYTES 21.6 %; MCH 31.5 pg (26.0-34.0); MCHC 35.1 g/dL (28.0-37.0); MCV 89.8 fL (80.0-100.0); MONOCYTES 5.7 %; MPV 8.3 fl. (7.2-11.1); NUCLEATED RBCS 0 /100WBC; PLATELET COUNT* 206 thou/uL (150-400); POLYS 71.4 %; RBC 4.21 mil/uL (4.20-5.00); WBC 11.5 thou/uL (4.0-11.0)
[2020-02-05 21:41] LABS: CALCIUM 8.6 mg/dL (8.5-10.1); CREATININE 0.8 mg/dL (0.6-1.3); POTASSIUM 3.1 mmol/L (3.5-5.1)
[2020-02-05 21:41] LABS: URINE BILIRUBIN NEGATIVE (Negative); URINE BLOOD NEGATIVE (Negative); URINE CLARITY CLEAR; URINE COLOR YELLOW; URINE GLUCOSE-RANDOM NEGATIVE (Negative); URINE KETONES NEGATIVE (Negative); URINE LEUKOCYTES-REFLEX NEGATIVE (Negative); URINE NITRITE-REFLEX NEGATIVE (Negative); URINE PROTEIN NEGATIVE (Negative); URINE UROBILINOGEN 0.2 E.U./dl (0.2-1.0)
[2020-02-05 21:44] LABS: PROTIME 10.1 Seconds (9.20-11.50)
[2020-02-05 21:48] LABS: AMP/METHAMP Negative (Negative); BARBITURATES Negative (Negative); BENZODIAZEPINES POSITIVE (Negative); COCAINE Negative (Negative); METHADONE Negative (Negative); OPIATES Negative (Negative); PCP Negative (Negative); THC POSITIVE (Negative)
[2020-02-05 21:52] LABS: ALBUMIN 3.4 g/dL (3.4-5.0); TOTAL BILIRUBIN 0.5 mg/dL (<0.1-1.0); TOTAL PROTEIN 6.7 g/dL (6.4-8.2)
[2020-02-06 00:50] VITALS: BP 132/74
--- NOTE | 2020-02-06 12:35 | EKG ---
[place] [address] ELECTROCARDIOGRAM REPORT Name: LUCY SUNDBoris Moody Room: [facility]#: [id number] Admission: 02/05/20 Attend Phys: Discharge: 02/06/20 Date of : 82 Date of Service: 02/05/202052 Report #: [id number] THIS REPORT FOR: //name// [facility] ED Test Date: 2020-02-05 Test Time: 20:53:24 Pat Name: WILLARD SU Department: Room: Gender: Visual Merchandiser: [place] : 1980 Requested By: Lizbeth Mckeon Order Number: [id number] MD: Brian Kinney Measurements Intervals [place] Rate: 98 P: 48 DE: 146 QRS: -74 QRSD: 93 T: 33 QT: 358 QTc: 458 Interpretive Statements Sinus rhythm Probable left atrial enlargement Left anterior fascicular block Abnormal R-wave progression, late transition Borderline T abnormalities, anterior leads Compared to ECG 10/22/2019 11:19:22 T-wave abnormality now present Electronically Signed On 02-06-2020 12:34:33 CDT by Brian Kinney [email or web address] <ELECTRONICALLY SIGNED> By: Brian Kinney MD, FAC 02/06/20 1234 52 52 Brian Kinney MD, FAC /EPI
== END 2020-02-06 00:50 | disposition home or self-care (01) ==
LOC: M.ERS 20:49
PROVIDERS: Emergency Medicine
DX: R00.2 Palpitations (principal); G43.909 Migraine, unspecified, not intractable, without status migrainosus; M79.7 Fibromyalgia; F17.210 Nicotine dependence, cigarettes, uncomplicated; Z90.89 Acquired absence of other organs; Z88.1 Allergy status to other antibiotic agents; Z90.711 Acquired absence of uterus with remaining cervical stump; Z88.8 Allergy status to other drugs, medicaments and biological substances; Z79.899 Other long term (current) drug therapy

== ENCOUNTER 2020-04-14 17:20 | Emergency (ER) | payer MEDICAID ==
[~2020-04-14] VITALS: Ht 160 cm; Wt 79.8 kg
[~2020-04-14 17:20] MED LIST changes: +LAMICTAL200 MG PO; -LAMOTRIGINE150 MG PO; +PHENTERMINE
[2020-04-14 17:41] LABS: URINE BLOOD TRACE (Negative); URINE CLARITY CLEAR; URINE COLOR YELLOW; URINE GLUCOSE-RANDOM NEGATIVE (Negative); URINE KETONES 1+ (Negative); URINE LEUKOCYTES-REFLEX NEGATIVE (Negative); URINE NITRITE-REFLEX NEGATIVE (Negative); URINE PROTEIN NEGATIVE (Negative); URINE SPECIFIC GRAVITY >= 1.030 (1.005-1.030); URINE UROBILINOGEN 0.2 E.U./dl (0.2-1.0)
[2020-04-14 17:44] LABS: ICTOTEST (BILI CONFIRMATORY) Negative (Negative); URINE BILIRUBIN 1+ (Negative)
[2020-04-14 17:53] LABS: ABSOLUTE LYMPHOCYTES 1.7 thou/uL (0.8-5.3); ABSOLUTE MONOCYTES 0.2 thou/uL (0.0-1.2); ABSOLUTE NEUTROPHILS 3.3 thou/uL (1.6-8.1); BASOPHILS 0.3 %; EOSINOPHILS 0.4 %; HEMATOCRIT 41.5 % (37.0-47.0); HEMOGLOBIN 14.6 gm/dL (12.0-15.0); LYMPHOCYTES 32.9 %; MCH 32.1 pg (26.0-34.0); MCV 91.6 fL (80.0-100.0); MONOCYTES 3.8 %; MPV 7.9 fl. (7.2-11.1); NUCLEATED RBCS 0 /100WBC; PLATELET COUNT* 228 thou/uL (150-400); POLYS 62.6 %; RBC 4.54 mil/uL (4.20-5.00); RDW-CV 12.5 % (10.5-14.5); WBC 5.2 thou/uL (4.0-11.0)
[2020-04-14 18:00] LABS: CALCIUM 8.3 mg/dL (8.5-10.1); CREATININE 0.7 mg/dL (0.6-1.3); POTASSIUM 3.3 mmol/L (3.5-5.1)
[2020-04-14 18:09] LABS: ALBUMIN 3.7 g/dL (3.4-5.0); TOTAL BILIRUBIN 0.7 mg/dL (<0.1-1.0)
[2020-04-14] MEDS ORDERED: ONDANSETRON ODT4 MG PO (19:12)
[2020-04-14 19:19] VITALS: BP 121/70
== END 2020-04-14 19:22 | disposition home or self-care (01) ==
LOC: M.ERS 17:20
PROVIDERS: Physician Assistant
DX: R10.11 Right upper quadrant pain (principal); R10.13 Epigastric pain; R11.2 Nausea with vomiting, unspecified; M79.7 Fibromyalgia; G43.909 Migraine, unspecified, not intractable, without status migrainosus; F17.210 Nicotine dependence, cigarettes, uncomplicated; Z90.89 Acquired absence of other organs; Z90.711 Acquired absence of uterus with remaining cervical stump; Z88.1 Allergy status to other antibiotic agents; Z88.8 Allergy status to other drugs, medicaments and biological substances

== ENCOUNTER 2020-05-19 03:16 | Emergency (ER) | payer MEDICAID ==
[~2020-05-19] VITALS: Ht 160 cm; Wt 79.8 kg
[~2020-05-19 03:16] MED LIST changes: +ONDANSETRON ODT4 MG PO
[2020-05-19 05:09] LABS: ABSOLUTE EOSINOPHILS 0.1 thou/uL (0.0-0.7); ABSOLUTE LYMPHOCYTES 0.9 thou/uL (0.8-5.3); ABSOLUTE MONOCYTES 0.4 thou/uL (0.0-1.2); ABSOLUTE NEUTROPHILS 4.7 thou/uL (1.6-8.1); BASOPHILS 0.2 %; EOSINOPHILS 1.8 %; HEMATOCRIT 28.9 % (37.0-47.0); HEMOGLOBIN 10.1 gm/dL (12.0-15.0); LYMPHOCYTES 14.9 %; MCH 32.7 pg (26.0-34.0); MCV 93.5 fL (80.0-100.0); MONOCYTES 6.5 %; MPV 8.3 fl. (7.2-11.1); NUCLEATED RBCS 0 /100WBC; PLATELET COUNT* 185 thou/uL (150-400); POLYS 76.6 %; RBC 3.09 mil/uL (4.20-5.00); RDW-CV 13.4 % (10.5-14.5); WBC 6.1 thou/uL (4.0-11.0)
[2020-05-19 05:19] LABS: CREATININE 0.7 mg/dL (0.6-1.3); POTASSIUM 3.1 mmol/L (3.5-5.1); TOTAL BILIRUBIN 0.4 mg/dL (<0.1-1.0)
[2020-05-19 05:20] LABS: ALBUMIN 2.5 g/dL (3.4-5.0); CALCIUM 7.5 mg/dL (8.5-10.1); TOTAL PROTEIN 5.7 g/dL (6.4-8.2)
[2020-05-19 06:52] VITALS: BP 106/55
== END 2020-05-19 06:55 | disposition home or self-care (01) ==
LOC: M.ERS 03:16
PROVIDERS: Personal Emergency Response Attendant
DX: M54.17 Radiculopathy, lumbosacral region (principal); M79.7 Fibromyalgia; G43.909 Migraine, unspecified, not intractable, without status migrainosus; F32.9 Major depressive disorder, single episode, unspecified; F41.9 Anxiety disorder, unspecified; F17.210 Nicotine dependence, cigarettes, uncomplicated; Z90.49 Acquired absence of other specified parts of digestive tract; Z90.711 Acquired absence of uterus with remaining cervical stump; Z88.1 Allergy status to other antibiotic agents; Z88.8 Allergy status to other drugs, medicaments and biological substances

== ENCOUNTER 2020-09-04 08:35 | Emergency (ER) | payer MEDICAID ==
[~2020-09-04] VITALS: Ht 157.5 cm; Wt 79.4 kg
[~2020-09-04 08:35] MED LIST changes: -ZOLOFT50 MG PO
[2020-09-04] MEDS ORDERED: PERCOCET 10-321 EAC1 PO (08:45)
[2020-09-04 09:27] LABS: ABSOLUTE EOSINOPHILS 0.1 thou/uL (0.0-0.7); ABSOLUTE MONOCYTES 0.3 thou/uL (0.0-1.2); ABSOLUTE NEUTROPHILS 3.3 thou/uL (1.6-8.1); BASOPHILS 0.5 %; EOSINOPHILS 0.9 %; HEMOGLOBIN 15.1 gm/dL (12.0-15.0); LYMPHOCYTES 35.4 %; MCH 30.2 pg (26.0-34.0); MCHC 34.3 g/dL (28.0-37.0); MCV 87.9 fL (80.0-100.0); MONOCYTES 5.1 %; MPV 8.2 fl. (7.2-11.1); NUCLEATED RBCS 0 /100WBC; PLATELET COUNT* 239 thou/uL (150-400); POLYS 58.1 %; RBC 5.01 mil/uL (4.20-5.00); RDW-CV 15.4 % (10.5-14.5); WBC 5.7 thou/uL (4.0-11.0)
[2020-09-04 09:41] LABS: APTT 25.9 Seconds (25.0-31.3); INR 0.9; PROTIME 9.8 Seconds (9.20-11.50)
[2020-09-04 09:44] LABS: CALCIUM 8.5 mg/dL (8.5-10.1); CREATININE 0.8 mg/dL (0.6-1.3); POTASSIUM 3.5 mmol/L (3.5-5.1)
[2020-09-04 09:49] LABS: ALBUMIN 3.9 g/dL (3.4-5.0); TOTAL BILIRUBIN 0.4 mg/dL (<0.1-1.0); TOTAL PROTEIN 7.4 g/dL (6.4-8.2)
[2020-09-04 12:59] VITALS: BP 107/38
--- NOTE | 2020-09-05 09:28 | EKG ---
[place] [address] ELECTROCARDIOGRAM REPORT Name: LUCY SUNDBoris Moody Room: [facility]#: [id number] Admission: 09/04/20 Attend Phys: Discharge: 09/04/20 Date of : 82 Date of Service: 09/04/20 0841 Report #: [id number] THIS REPORT FOR: //name// [facility] ED Test Date: 2020-09-04 Test Time: 08:41:49 Pat Name: WILLARD SU Department: Room: Gender: F Leather Products Supervisor: [facility] : 1980 Requested By: Yanet Chapin Order Number: [id number] MD: Brian Kinney Measurements Intervals [place] Rate: 76 P: 43 SD: 131 QRS: -89 QRSD: 95 T: 41 QT: 394 QTc: 444 Interpretive Statements Sinus rhythm Left anterior fascicular block Abnormal R-wave progression, late transition Compared to ECG 02/05/2020 20:53:24 no change Electronically Signed On 09-05-2020 9:28:18 CDT by Brian Kinney [email or web address] <ELECTRONICALLY SIGNED> By: Brian Kinney MD, FACC 09/05/20 0928 0 0 Brian Kinney MD, [facility] /EPI
== END 2020-09-04 13:00 | disposition home or self-care (01) ==
LOC: M.ERS 08:35
PROVIDERS: Personal Emergency Response Attendant
DX: R07.89 Other chest pain (principal); M79.7 Fibromyalgia; G43.909 Migraine, unspecified, not intractable, without status migrainosus; F17.210 Nicotine dependence, cigarettes, uncomplicated; Z90.49 Acquired absence of other specified parts of digestive tract; Z90.711 Acquired absence of uterus with remaining cervical stump; Z79.899 Other long term (current) drug therapy; Z88.1 Allergy status to other antibiotic agents; Z88.8 Allergy status to other drugs, medicaments and biological substances

== ENCOUNTER 2021-03-12 12:42 | Emergency (ER) | payer MEDICAID ==
[~2021-03-12] VITALS: Ht 160 cm; Wt 81.7 kg
[~2021-03-12 12:42] MED LIST changes: +PERCOCET 10-321 EAC1 PO
[2021-03-12 13:17] LABS: URINE BILIRUBIN NEGATIVE (Negative); URINE BLOOD NEGATIVE (Negative); URINE CLARITY CLEAR; URINE COLOR YELLOW; URINE GLUCOSE-RANDOM NEGATIVE (Negative); URINE KETONES NEGATIVE (Negative); URINE LEUKOCYTES-REFLEX NEGATIVE (Negative); URINE NITRITE-REFLEX NEGATIVE (Negative); URINE PROTEIN NEGATIVE (Negative); URINE SPECIFIC GRAVITY >= 1.030 (1.005-1.030); URINE UROBILINOGEN 0.2 E.U./dl (0.2-1.0)
[2021-03-12 13:48] LABS: ABSOLUTE LYMPHOCYTES 1.9 thou/uL (0.8-5.3); ABSOLUTE MONOCYTES 0.4 thou/uL (0.0-1.2); ABSOLUTE NEUTROPHILS 5.3 thou/uL (1.6-8.1); BASOPHILS 0.4 %; EOSINOPHILS 0.6 %; HEMATOCRIT 40.7 % (37.0-47.0); HEMOGLOBIN 13.6 gm/dL (12.0-15.0); LYMPHOCYTES 25.1 %; MCH 31.1 pg (26.0-34.0); MCHC 33.4 g/dL (28.0-37.0); MONOCYTES 4.8 %; MPV 7.7 fl. (7.2-11.1); NUCLEATED RBCS 0 /100WBC; PLATELET COUNT* 192 thou/uL (150-400); POLYS 69.1 %; RBC 4.38 mil/uL (4.20-5.00); RDW-CV 13.4 % (10.5-14.5); WBC 7.7 thou/uL (4.0-11.0)
[2021-03-12 13:56] LABS: CALCIUM 8.2 mg/dL (8.5-10.1); CREATININE 0.7 mg/dL (0.6-1.3); POTASSIUM 3.2 mmol/L (3.5-5.1)
[2021-03-12 14:00] LABS: ALBUMIN 3.6 g/dL (3.4-5.0); TOTAL BILIRUBIN 0.5 mg/dL (<0.1-1.0); TOTAL PROTEIN 6.9 g/dL (6.4-8.2)
[2021-03-12] MEDS ORDERED: IBUPROFEN 800800 M1 PO (15:48)
[2021-03-12] MEDS ORDERED: NORCO5 PO (15:50)
[2021-03-12 16:09] VITALS: BP 125/65
== END 2021-03-12 16:10 | disposition home or self-care (01) ==
LOC: M.ERS 12:42
PROVIDERS: Nurse Practitioner Family
DX: N83.202 Unspecified ovarian cyst, left side (principal); E87.6 Hypokalemia; G43.909 Migraine, unspecified, not intractable, without status migrainosus; M79.7 Fibromyalgia; F17.210 Nicotine dependence, cigarettes, uncomplicated; Z88.1 Allergy status to other antibiotic agents; Z88.8 Allergy status to other drugs, medicaments and biological substances; Z90.89 Acquired absence of other organs; Z90.711 Acquired absence of uterus with remaining cervical stump

== ENCOUNTER 2021-11-07 09:36 | Emergency (ER) | payer MEDICAID ==
[~2021-11-07] VITALS: Ht 157.5 cm; Wt 78.5 kg
[~2021-11-07 09:36] MED LIST changes: +NORCO5 PO
[2021-11-07 09:50] VITALS: BP 128/79
[2021-11-07] MEDS ORDERED: FLEXERIL PO (09:55)
[2021-11-07] MEDS ORDERED: PERCOCET 10-321 EAC1 PO (09:56)
--- NOTE | 2021-11-07 16:53 | EKG ---
[place] [address] ELECTROCARDIOGRAM REPORT Name: SHARLENEWILLARD R Room: [facility]#: [id number] Admission: 11/07/21 Attend Phys: Discharge: Date of : 82 Date of Service: 11/07/21 0948 Report #: [id number] THIS REPORT FOR: //name// [facility] ED Test Date: 2021-11-07 Test Time: 09:48:11 Pat Name: WILLARD SU Department: Room: Gender: F Pharmacy Student: : 1980 Requested By: Jacob Espino Order Number: [id number] MD: Brian Kinney Measurements Intervals [place] Rate: 90 P: 58 [place]: 143 QRS: 269 QRSD: 87 T: 36 QT: 374 QTc: 458 Interpretive Statements Sinus rhythm Left anterior fascicular block Abnormal R-wave progression, late transition Baseline wander in lead(s) V2 Compared to ECG 09/04/2020 08:41:49 No significant changes Electronically Signed On 11-07-2021 16:53:11 EMERGENCY MEDICINE by Brian Kinney [email or web address] <ELECTRONICALLY SIGNED> By: Brian Kinney MD, [facility] 11/07/21 1653 0948 0948 Brian Kinney MD, [facility] /EPI
== END 2021-11-07 12:08 | disposition left against medical advice (07) ==
LOC: M.ERS 09:36
DX: R07.89 Other chest pain (principal); Z53.21 Procedure and treatment not carried out due to patient leaving prior to being seen by health care provider